=== PATIENT | female | born 1995 | race Caucasian/White ===

== ENCOUNTER 2018-07-09 00:50 | Inpatient (IN) ==
[2018-07-09] MEDS ORDERED: Benzocaine/Menthol 56 GM AEROSOL SPRAY TP PRN ×2 (00:56→02:15)
[2018-07-09] MEDS ORDERED: Lanolin 7 G OINT...G. TP PRN ×2 (00:56→02:15)
--- NOTE | 2018-07-09 01:09 | OB/GYN History & Physical ---
Date of Encounter: 07/09/18 Time of Encounter: 00:57 History of Present Illness Chief complaint: Precipitous delivery HPI: S: Ms. Carr is a 22 year old female at 38+0wks KERRIE 07/23/2018 s/b 1st TM US who presents from OSH s/p delivery precipitously in the ED. The patient had UTD PNC with Dr. Hill at [facility], however knew she wouldn't make it to [place] in time - therefore she went to the closest hospital. UNfortunately, the hospital she went to did NOT have a L&D. After delivering baby at ED, she was then sent to [facility] for further care and delivery of placenta. Upon arrival, baby was with Hgb of 35--> 30. Mom was with Hgb 108. AFter review of PNR: RH negative (rec'd Rhogam 12/2017) AB screen negative Rubella Immune HCV negative HIV 1/2 NR HBsAg NR GC/CT negative 1st TM, Positive CT 3rd TM (treated 1 week ago per patient) Anatomy scan CHRISTI O: VSS, HDS, afebrile Mild range BP on arrival Abdominal examination: TTP at fundus Pelvic examination: placenta intact (cut and clamped at OSH), no active bleeding appreciated, no perineal laceration(s) visualized) A/P: 22yo at 38+0wks [place] who delivered precipitously at OSH, presented to [facility] for delivery of placenta and remainder of PP care 1. Precipitous delivery - delivery time baby 2301 (07/08), delivery of placenta [facility]: 0045 (07/09) - precipitous @ OSH, patient did not recieve IV/IM pitocin, no active bleeding - VSS, HDS, afebrile upon arrival - EMS noted intermittently elevated BP - SVE performed, appreciated clamped umbilical cord with placenta intact - delivered placenta with minimal (gentle) traction, one dose of IM pitocin administered immediately following placental delivery - no perineal laceration(S) appreciated, small bilateral periurethral repair appreciated - fundus firm, patient hemostatic without bleeding 2. MWB - intermittently elevated BP - denies si/sx consistent with PreE - UTD PNC with Dr. Hill of [facility] - hx of +CT at last visit, treated with azithro, reports partner treated as well - too early for PA, will require at next appt 3. FWB - hypoglycemic upon arrival, patient refusing to breastfeed - GBS positive, known culture, nursery notified of GBS status - UTD PNC with Dr. Hill, normal anatomy Dispo: Patient admitted for delivery of placenta and remainder of care. GBS positive status, patient is with positive CT s/p treatment. MD ALISA Review of System OB - Constitutional Constitutional ROS IM: as per HPI (See HPI for H&P) Results All other labs normal.
--- NOTE | 2018-07-09 01:13 | OB/GYN Procedure Note ---
Delivery - Delivery Date: 07/09/18 Provider: Blaire Boles Intrapartum events: precipitous labor- <3hr, other(please specify) Delivery induction: other Delivery monitor: none Anesthesia: none Quantitated Blood Loss: 100 (Patient delivered precipitously at OSH, we delivered placenta (Intact on admission)) - Repair Episiotomy: none Laceration Description: None - Complications Delivery complications: none Delivery comments: Patient delivered precipitously at OSH where there was no L&D. Infant was delivered and patient was then transported to [facility] where spontaneous placenta delivery was performed. IM pitocin was given at time of delivery. No perineal laceration(S) appreciated or repaired. Small bilateral periurethral laceration( S) appreciated. FUndus firm, no bleeding visualized. Hemodynamically stable. - Disposition Mom disposition: stable in LDR [place] disposition: taken to nursery - Comments Comments: Term deliver at 38+0 delivered at OSH. Patient presented with cramping on EMS, placenta intact (clamped and cut). With minimal traction, placenta was delivered, one dose of IM pitocin administered. No perineal laceration(s) appreciated, no bilateral periurethral laceration(s) appreciated. Placenta intact, not sent for evaluation (pathology). Unable to obtain cord gases. GBS positive, nursery made aware. EBL for placental delivery: <100mL Laceration(S): Small periurethral laceration(s) appreciated, no repair required Patient RH negative, will have PP rhogam administered. MD ALISA
[2018-07-09] MEDS ORDERED: Oxytocin 20 units/ LR 1000 mL 20 UNIT/1,000 ML BAG IVC SCH (02:15)
[2018-07-09] MEDS ORDERED: *HR* Oxytocin 10 UNIT/ML VIAL IM ONE ×2 (02:15→08:12)
[2018-07-09] MEDS ORDERED: Measles/Mumps/Rubella Vacc 0.5 ML VIAL SQ PRN (02:15)
[2018-07-09] MEDS ORDERED: Rho Immune Globulin 1,500 UNIT SYRINGE IM PRN (02:15)
[2018-07-09] MEDS: Acetaminophen 325 MG TABLET PO PRN ×2 (04:44→22:14)
[2018-07-09 05:55] LABS: Basophils % 0.1 %; Hematocrit 35.5 % (35.3-44.9); Immature Granulocytes % 0.3 % (0-4); Lymphocytes # 1.6 K/mcL (0.6-4.6); Mean Corpuscular HGB Conc 33.8 g/dL (31.6-35.5); Mean Corpuscular Hemoglobin 27.9 pg (28.0-33.3); Mean Corpuscular Volume 82.6 fL (83.0-100.0); Mean Platelet Volume 12.5 fL (9.4-12.4); Monocytes # 0.9 K/mcL (0.0-1.3); Monocytes % 5.5 %; Neutrophils # 13.6 K/mcL (1.6-8.9); Platelet Count 233 K/mcL (140-400); Red Cell Distribution Width 12.2 % (11.5-14.5); Segmented Neutrophils % 84.1 %
[2018-07-09] MEDS: Prenatal Vit/FA 1 EACH TABLET PO SCH (08:56)
--- NOTE | 2018-07-09 09:05 | OB/GYN Progress Note ---
Date of Encounter: 07/09/18 Time of Encounter: 09:02 - Assessment and Plan (1) Vaginal delivery Current Visit: Yes Status: Acute Continue routine care Ice to perineum when necessary Dermoplast to perineum when necessary anticipate discharge home tomorrow Subjective - Subjective Principal diagnosis: s/p Interval history: Feeling well. Out of bed without dizziness. Some perineal discomfort-using ice pack. Cramping minimal, using ibuprofen. Bottlefeeding infant. Voiding without difficulty. Passing flatus, no BM yet. Tolerating regular diet. Patient reports: appetite normal, voiding normally, pain well controlled, ambulating normally Kinsey: doing well, bottle feeding Objective - Latest Vital Signs Latest vital signs: Vital Signs Temp Pulse Resp BP Pulse Ox 07/09/18 08:56 98.5 F 99 16 137/83 100 07/09/18 05:20 98.2 F 87 16 138/88 98 07/09/18 04:20 98.5 F 91 18 128/79 98 07/09/18 03:20 98.2 F 98 18 138/89 98 Intake and Output 07/08/18 07/09/18 07/09/18 23:59 07:59 15:59 Other: Weight 91.943 kg Patient Weight 07/09/18 23:59 Weight 91.943 kg - Exam Lungs: bilateral: normal Chest: Normal S1, Normal S2 Extremities: Present: normal Abdomen: Present: normal appearance, soft Uterus: Present: firm Uterus Position: 2 Fingers Below Umbilicus, Midline - Labs Labs: Laboratory Results - last 24 hr 07/09/18 05:13 WBC 16.2 H RBC 4.30 Hgb 12.0 Hct 35.5 MCV 82.6 L MCH 27.9 L MCHC 33.8 RDW 12.2 Plt Count 233 MPV 12.5 H Immature Gran % 0.3 Seg Neutrophils % 84.1 Lymphocytes % 10.0 Monocytes % 5.5 Eosinophils % 0.0 Basophils % 0.1 Neutrophils # 13.6 H Lymphocytes # 1.6 Monocytes # 0.9 Eosinophils # 0.0 Basophils # 0.0
[2018-07-09 18:26] LABS: Basophils % 0.2 %; Eosinophils % 0.3 %; Hematocrit 36.2 % (35.3-44.9); Immature Granulocytes % 0.3 % (0-4); Lymphocytes # 2.1 K/mcL (0.6-4.6); Lymphocytes % 21.3 %; Mean Corpuscular HGB Conc 33.1 g/dL (31.6-35.5); Mean Corpuscular Hemoglobin 27.6 pg (28.0-33.3); Mean Corpuscular Volume 83.2 fL (83.0-100.0); Monocytes # 0.9 K/mcL (0.0-1.3); Monocytes % 8.9 %; Neutrophils # 6.9 K/mcL (1.6-8.9); Platelet Count 212 K/mcL (140-400); Red Blood Count 4.35 M/mcL (3.82-4.97); Red Cell Distribution Width 12.2 % (11.5-14.5)
[2018-07-09 18:45] LABS: Alanine Aminotransferase 16 Units/L (7-52); Aspartate Amino Transferase 18 Units/L (13-39); BUN/Creatinine Ratio 15 (6-26); Blood Urea Nitrogen 11 mg/dL (6-20); Lactate Dehydrogenase 223 Units/L (140-271); Uric Acid 5.1 mg/dL (2.3-7.6); eGFR For Non-African Americans > 60 (> 60)
[2018-07-10 07:53] VITALS: BP 125/79
[2018-07-10] MEDS: Prenatal Vit/FA 1 EACH TABLET PO SCH (09:24)
--- NOTE | 2018-07-10 09:30 | Discharge Summary ---
Date of Encounter: 07/10/18 Time of Encounter: 09:28 - Discharge Diagnosis (1) Status post vaginal delivery Priority: Primary Status: Acute Comments: Pt meeting PP milestones. Reports minimal pain and cramping. Reports minimal bleeding, no clots noted. She desires discharge home today. (2) Depression Priority: Secondary Status: Acute Comments: Pt on zoloft and reports mood is good Qualifiers: Depression Type: unspecified Qualified Code(s): F32.9 - Major depressive disorder, single episode, unspecified (3) Contraceptive education Priority: Secondary Status: Acute Comments: Pt desires depo for contraception. - Discharge Medications Prescriptions: Ibuprofen [Motrin] 600 mg PO Q6HR PRN #30 tab PRN Reason: Pain Home Medications: Sertraline [Zoloft] 100 mg PO DAILY 07/09/18 [History] Docusate [Colace] 100 mg PO BID capsule 07/10/18 [Rx] Ferrous Sulfate 325 mg PO DAILY tablet 07/10/18 [Rx] Ibuprofen [Motrin] 600 mg PO Q6HR PRN #30 tab 07/10/18 [Rx] Vit/FA 1 each PO DAILY tablet 07/10/18 [Rx] Allergies/Adverse Reactions: 3 Allergy/AdvReac Type Severity Reaction Status Date / Time sulfamethoxazole Allergy Rash Verified 07/09/18 01:52 [From Bactrim] trimethoprim [From Bactrim] Allergy Rash Verified 07/09/18 01:52 Data Procedures and tests throughout hospitalization: Laboratory Tests 07/09/18 07/09/18 07/09/18 05:13 05:14 18:03 WBC 16.2 H 10.0 RBC 4.30 4.35 Hgb 12.0 12.0 Hct 35.5 36.2 MCV 82.6 L 83.2 MCH 27.9 L 27.6 L MCHC 33.8 33.1 RDW 12.2 12.2 Plt Count 233 212 MPV 12.5 H 12.0 Immature Gran % 0.3 0.3 Seg Neutrophils % 84.1 69.0 Lymphocytes % 10.0 21.3 Monocytes % 5.5 8.9 Eosinophils % 0.0 0.3 Basophils % 0.1 0.2 Neutrophils # 13.6 H 6.9 Lymphocytes # 1.6 2.1 Monocytes # 0.9 0.9 Eosinophils # 0.0 0.0 Basophils # 0.0 0.0 BUN Creatinine Est GFR ( Amer) Est GFR (Non-Af Amer) BUN/Creatinine Ratio Uric Acid AST ALT Lactate Dehydrogenase Screen NEGATIVE Baby's Blood Type A RH POSITIVE Mother's Blood Type O RH NEGATIVE Rhogam Indicated YES Rhogam Req for Mother 1 07/09/18 18:03 WBC RBC Hgb Hct MCV MCH MCHC RDW Plt Count MPV Immature Gran % Seg Neutrophils % Lymphocytes % Monocytes % Eosinophils % Basophils % Neutrophils # Lymphocytes # Monocytes # Eosinophils # Basophils # BUN 11 Creatinine 0.74 Est GFR ( Amer) > 60 Est GFR (Non-Af Amer) > 60 BUN/Creatinine Ratio 15 Uric Acid 5.1 AST 18 ALT 16 Lactate Dehydrogenase 223 Screen Baby's Blood Type Mother's Blood Type Rhogam Indicated Rhogam Req for Mother Labs on day of discharge: Labs from last 24 hours 07/09/18 07/09/18 07/09/18 18:03 18:03 05:14 WBC 10.0 RBC 4.35 Hgb 12.0 Hct 36.2 MCV 83.2 MCH 27.6 L MCHC 33.1 RDW 12.2 Plt Count 212 MPV 12.0 Immature Gran % 0.3 Seg Neutrophils % 69.0 Lymphocytes % 21.3 Monocytes % 8.9 Eosinophils % 0.3 Basophils % 0.2 Neutrophils # 6.9 Lymphocytes # 2.1 Monocytes # 0.9 Eosinophils # 0.0 Basophils # 0.0 BUN 11 Creatinine 0.74 Est GFR ( Amer) > 60 Est GFR (Non-Af Amer) > 60 BUN/Creatinine Ratio 15 Uric Acid 5.1 AST 18 ALT 16 Lactate Dehydrogenase 223 Screen NEGATIVE Baby's Blood Type A RH POSITIVE Mother's Blood Type O RH NEGATIVE Rhogam Indicated YES Rhogam Req for Mother 1 Date of admission: 07/09/18 00:50 Primary care physician: PCP NONE Consults: 07/09/18 02:15 Consult to Diplomatic Officer [CONS] Routine Comment: Vaginal delivery, consult needed 07/09/18 07:33 Consult to Accountant Bookkeeper (W&C) [CONS] Routine Reason For Exam: Reason for SW Consult: care elsewhere, delivered at [facility]. Pts history told here differed from Discharging clinician: Kamille Reyna Anticipated date of discharge: 07/10/18 - Patient Status Disposition: Home, Self-Care Condition: Good Functional capacity at discharge: independent ambulation Overall status at discharge: patient is progressing back to baseline - Discharge Instructions Follow Up With: NONE,PCP [Primary Care Provider] - - Diet and Activity Activity: increase activity as tolerated Diet: advance to your usual diet Hospital Course Episiotomy: none complications: none Discharge diagnosis: IUP at term delivered Time Attestation: Total time spent providing and/or coordinating discharge services: Exam - Constitutional Vitals: Temp Pulse Resp BP Pulse Ox 97.9 F 77 16 125/79 97 07/10/18 07:30 07/10/18 07:30 07/10/18 07:30 07/10/18 07:30 07/09/18 20:59 General appearance IM: A&O X 3, pleasant, no acute distress - Respiratory Respiratory exam: Present: CTAB - Cardiovascular Cardiovascular exam IM: Present: RRR - GI/Abdominal GI/Abdominal exam IM: normal bowel sounds - Uterine Tone: Firm Uterus Position: 1 Finger Below Umbilicus - Extremities Exam Extremities exam IM: Present: normal inspection - Neurological Exam Neurological exam: alert, oriented X3 - Psychiatric Additional comments: Reports h/o of PP depression after first . Reviewed warning signs of PPD. Pt began Zoloft in March and reports feeling better since starting it. Pt well established with Dr. Hill for follow-up.
== END 2018-07-10 13:01 | disposition home or self-care (01) | DRG 560 ==
LOC: 1NENULAB 00:50 → 1NENUOBS 03:36
PROVIDERS: ADMIT Advanced Practice Midwife; ATTEND Advanced Practice Midwife